=== PATIENT | male | born 1940 | race Caucasian/White ===

== ENCOUNTER → 2018-05-30 | Outpatient (CLI) | payer MEDICARE, OTHER ==
[~2018-05-30] MED LIST: CATHETER FLUSH 10 ML SYR IV PRN
[2018-05-30 08:08] VITALS: BP 190/88
--- NOTE | 2018-05-30 14:06 | STRESS TEST ---
DATE OF SERVICE: 05/30/2018 REFERRING PHYSICIAN: Dr. Jourdan Mcdonald. In summary, the patient was injected with 10.98 mCi of technetium-99 Myoview and the resting images were obtained. Then, the patient received a peak stress dose of 30.4 mCi of technetium-99 Myoview. Throughout the test, patient was supervised by Dr. Mcdonald, the resting and stress images were reviewed and compared in the short axis, horizontal long axis, and vertical long axis views. Review of the images showed diaphragmatic attenuation affecting the quality of the images. There is questionable ischemia involving the mid to apical inferior wall and inferolateral wall. SSS is 1, SDS 1, TID value 1.03. On the gated images, the left ventricle appeared to be normal size with normal contractility. Calculated ejection fraction of 62%. CONCLUSION: 1. Diaphragmatic attenuation affecting the quality of the images with questionable ischemia involving the mid to apical inferior wall and inferolateral wall. 2. Normal left ventricular size with normal contractility. Calculated ejection fraction of 62%. Job ID: [id number] DocumentID: [id number] Dictated Date: 05/30/2018 13:19:23 Fuel Handler Date: 05/30/2018 14:05:55 Dictated By: LOR MARTÍNEZ MD
== END ==
LOC: CARD 06:40
PROVIDERS: ATTEND Internal Medicine
DX: I48.91 Unspecified atrial fibrillation (principal)
CPT/HCPCS: 78452; 93017

== ENCOUNTER 2021-10-09 11:01 | Inpatient (IN) | payer MEDICARE, OTHER ==
[~2021-10-09] VITALS: Ht 178 cm; Wt 100.8 kg
[2021-10-09] MEDS ORDERED: ACETAMINOPHEN 500 MG TAB (TYLENOL) ONE (11:16)
[2021-10-09] MEDS ORDERED: RT-ALBUTEROL/IPRATROPIUM 3 ML (DUONEB) VIAL ONE (11:17)
[2021-10-09 11:26] VITALS: BP 144/82
[2021-10-09] MEDS ORDERED: RT-ALBUTEROL/IPRATROPIUM 3 ML (DUONEB) VIAL INH ONE (11:30)
[2021-10-09 11:52] LABS: BASOPHILS % (AUTO) 0 % (0-10); EOSINOPHILS % (AUTO) 0 % (0-10); HEMATOCRIT 44 % (40-54); HEMOGLOBIN 15.8 g/dL (13.3-17.7); LYMPHOCYTES # (AUTO) 1.3 10^3/uL (1.0-4.0); LYMPHOCYTES % (AUTO) 7 % (12-44); MEAN CORPUSCULAR HEMOGLOBIN 30 pg (25-34); MEAN CORPUSCULAR HGB CONC 36 g/dL (32-36); MEAN CORPUSCULAR VOLUME 82 fL (80-99); MEAN PLATELET VOLUME 12.3 fL (9.0-12.2); MONOCYTES # (AUTO) 0.4 10^3/uL (0.0-1.0); MONOCYTES % (AUTO) 2 % (0-12); NEUTROPHILS # (AUTO) 15.7 10^3/uL (1.8-7.8); NEUTROPHILS % (AUTO) 89 % (42-75); PLATELET COUNT 190 10^3/uL (130-400); WHITE BLOOD COUNT 17.6 10^3/uL (4.3-11.0)
[2021-10-09] MEDS ORDERED: ACETAMINOPHEN 500 MG TAB (TYLENOL) PO ONE (12:00)
[2021-10-09] MEDS ORDERED: ONDANSETRON 4 MG/2 ML (SDV) Z0FRAN IVP ONE (12:00)
--- NOTE | 2021-10-09 12:05 | Diagnostic Imaging Report ---
INDICATION: COVID-19 positive. TIME OF EXAM: 11:51 a.m. No prior studies are available for comparison. FINDINGS: The heart is enlarged. There are bilateral interstitial and airspace pulmonary infiltrates consistent with pneumonia. This is most consolidated in the right upper lobe. Central vascularity is somewhat prominent as well. There is no effusion or pneumothorax. IMPRESSION: Cardiomegaly and bilateral infiltrates most suggestive of pneumonia. Dictated by: Dictated on workstation # [id number]
[2021-10-09 12:07] LABS: ALBUMIN 3.4 GM/DL (3.2-4.5); POTASSIUM 3.7 MMOL/L (3.6-5.0)
[2021-10-09 12:08] LABS: CALCIUM 9.2 MG/DL (8.5-10.1)
[2021-10-09 12:10] LABS: TOTAL PROTEIN 7.3 GM/DL (6.4-8.2)
[2021-10-09 12:11] LABS: BILIRUBIN,TOTAL 1.9 MG/DL (0.1-1.0)
[2021-10-09 12:13] LABS: CREATININE SERUM 1.1 MG/DL (0.60-1.30); FIBRIN DEGRADATION PRODUCTS 1.04 UG/ML (0.00-0.49); INR 4.5 (0.8-1.4); PROTHROMBIN TIME PATIENT 43.6 SEC (12.2-14.7)
[2021-10-09 12:18] LABS: BAND NEUTROPHILS 0 %; BASOPHILS % (MANUAL) 0 %; EOSINOPHILS % (MANUAL) 0 %; LYMPHOCYTES % (MANUAL) 6 %; MONOCYTES % (MANUAL) 1 %; NEUTROPHILS % (MANUAL) 93 %; RBC MORPH NORMAL
[2021-10-09] MEDS ORDERED: NS IV 1000 ML 1,000 ML IV SCH (13:15)
--- NOTE | 2021-10-09 13:21 | ED General ---
General Chief Complaint: COVID19 Suspect/Confirmed Stated Complaint: COVID + Nursing Triage Note: PT TO RM 7 VIA [facility]. UPON ARRIVAL PT IN RESPIRATORY DISTRESS W CPAP IN PLACE, EMS ADMINISTERED 125MG SOLUMEDROL AND DUONEB TX, INITIATED 20G L HAND SL. PT TESTED COVID + 1 WK AGO LAST SATURDAY. PT DENIES PAIN AT THIS TIME, REPORTS EPISODE OF VOMITING THIS AM. A&OX4. Source of Information: Patient, EMS Exam Limitations: No Limitations History of Present Illness Date Seen by Provider: Oct 09, 2021 Time Seen by Provider: 11:04 Initial Comments This 81-year-old gentleman presents to the emergency room with COVID-19 on day #8 with a positive test on October 02. He is in respiratory distress and arrives via EMS with oxygen saturations in the 70s on CPAP. He received a DuoNeb in route as well as Solu-Medrol 125 mg. He was explicitly asked about CODE STATUS upon arrival and is adamant that he does not want CPR or intubation. He reports vomiting this morning. He denies any pain. Allergies and Home Medications Allergies Coded Allergies: No Known Drug Allergies (Unverified , 05/01/12) Patient Home Medication List Home Medication List Reviewed: Yes Review of Systems Review of Systems Constitutional: see HPI, fever EENTM: no symptoms reported Respiratory: see HPI Cardiovascular: no symptoms reported Gastrointestinal: see HPI, vomiting Genitourinary: no symptoms reported Musculoskeletal: no symptoms reported Skin: no symptoms reported Psychiatric/Neurological: No Symptoms Reported Hematologic/Lymphatic: No Symptoms Reported Immunological/Allergic: no symptoms reported Past Ezuxffq-Wvazpp-Bydijt Hx Patient Social History Tobacco Use?: No Smoking Status: Former Smoker Use of E-Cig and/or Vaping dev: No Substance use?: No Alcohol Use?: No Immunizations Up To Date Influenza Vaccine Up-to-Date: No; Not Current First/Initial COVID19 Vaccinat: NONE Second COVID19 Vaccination Laron: NONE Third COVID19 Vaccination Date: NONE COVID19 Vaccine [employer] Offbearer: NONE Past Medical History Surgeries: Yes Abdominal (colonoscopy, transverse colectomy) Respiratory: Yes Sleep Apnea Cardiac: Yes Atrial Fibrillation Neurological: No Reproductive Disorders: No Genitourinary: No Gastrointestinal: No Musculoskeletal: No Endocrine: No HEENT: No Cancer: Yes Colon Psychosocial: No Integumentary: No Physical Exam-Suspected Sepsis Physical Exam Vital Signs Vital Signs - First Documented 10/09/21 10/09/21 11:26 17:00 O2 Flow Rate 100.00 FiO2 100 Capillary Refill : Less Than 3 Seconds Blood Pressure Mean: 94 Height, Weight, BMI Height: '" Weight: lbs. oz. 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 Norm as Tested Skin: normal color, warm/dry Focused Exam Lactate Level 10/09/21 12:30: Lactic Acid Level 3.04*H 10/09/21 15:30: Lactic Acid Level 2.52*H 10/09/21 17:33: Lactic Acid Level 2.87*H Lactic Acid Level Laboratory Tests Test 10/09/21 17:33 Lactic Acid Level 2.87 MMOL/L (0.50-2.00) *H Progress/Results/Core Measures Suspected Sepsis SIRS Temperature: Pulse: 98 Respiratory Rate: 40 Laboratory Tests 10/09/21 11:35: White Blood Count 17.6H Blood Pressure 144 /82 Mean: 94 10/09/21 12:30: Lactic Acid Level 3.04*H 10/09/21 15:30: Lactic Acid Level 2.52*H 10/09/21 17:33: Lactic Acid Level 2.87*H Laboratory Tests 10/09/21 11:35: Creatinine 1.10, INR Comment 4.5H, Platelet Count 190, Total Bilirubin 1.9H Results/Orders Lab Results Laboratory Tests Test 10/09/21 11:35 10/09/21 12:30 10/09/21 14:10 10/09/21 15:30 Range/Units White Blood Count 17.6 H 4.3-11.0 10^3/uL Red Blood Count 5.34 4.30-5.52 10^6/uL Hemoglobin 15.8 13.3-17.7 g/dL Hematocrit 44 40-54 % Mean Corpuscular Volume 82 80-99 fL Mean Corpuscular Hemoglobin 30 25-34 pg Mean Corpuscular Hemoglobin Concent 36 32-36 g/dL Red Cell Distribution Width 12.9 10.0-14.5 % Platelet Count 190 130-400 10^3/uL Mean Platelet Volume 12.3 H 9.0-12.2 fL Immature Granulocyte % (Auto) 1 % Neutrophils (%) (Auto) 89 H 42-75 % Lymphocytes (%) (Auto) 7 L 12-44 % Monocytes (%) (Auto) 2 0-12 % Eosinophils (%) (Auto) 0 0-10 % Basophils (%) (Auto) 0 0-10 % Neutrophils # (Auto) 15.7 H 1.8-7.8 10^3/uL Lymphocytes # (Auto) 1.3 1.0-4.0 10^3/uL Monocytes # (Auto) 0.4 0.0-1.0 10^3/uL Eosinophils # (Auto) 0.0 0.0-0.3 10^3/uL Basophils # (Auto) 0.0 0.0-0.1 10^3/uL Immature Granulocyte # (Auto) 0.2 H 0.0-0.1 10^3/uL Neutrophils % (Manual) 93 % Lymphocytes % (Manual) 6 % Monocytes % (Manual) 1 % Eosinophils % (Manual) 0 % Basophils % (Manual) 0 % Band Neutrophils 0 % Blood Morphology Comment NORMAL Prothrombin Time 43.6 H 12.2-14.7 SEC INR Comment 4.5 H 0.8-1.4 Activated Partial Thromboplast Time 43 H 24-35 SEC D-Dimer 1.04 H 0.00-0.49 UG/ML Sodium Level 128 L 135-145 MMOL/L Potassium Level 3.7 3.6-5.0 MMOL/L Chloride Level 95 L 98-107 MMOL/L Carbon Dioxide Level 19 L 21-32 MMOL/L Anion Gap 14 5-14 MMOL/L Blood Urea Nitrogen 27 H 7-18 MG/DL Creatinine 1.10 0.60-1.30 MG/DL Estimat Glomerular Filtration Rate 68 BUN/Creatinine Ratio 25 Glucose Level 117 H 70-105 MG/DL Calcium Level 9.2 8.5-10.1 MG/DL Corrected Calcium 9.7 8.5-10.1 MG/DL Total Bilirubin 1.9 H 0.1-1.0 MG/DL Aspartate Amino Transf (AST/SGOT) 47 H 5-34 U/L Alanine Aminotransferase (ALT/SGPT) 19 0-55 U/L Alkaline Phosphatase 74 40-136 U/L C-Reactive Protein High Sensitivity 4.72 H 0.00-0.50 MG/DL Total Protein 7.3 6.4-8.2 GM/DL Albumin 3.4 3.2-4.5 GM/DL Procalcitonin 0.19 H <0.10 NG/ML Lactic Acid Level 3.04 *H 2.52 *H 0.50-2.00 MMOL/L Urine Color ORANGE Urine Clarity CLEAR Urine pH 6.0 5-9 Urine Specific [place] 1.020 1.016-1.022 Urine Protein 1+ H NEGATIVE Urine Glucose (UA) NEGATIVE NEGATIVE Urine Ketones NEGATIVE NEGATIVE Urine Nitrite NEGATIVE NEGATIVE Urine Bilirubin NEGATIVE NEGATIVE Urine Urobilinogen 0.2 < = 1.0 MG/DL Urine Leukocyte Esterase NEGATIVE NEGATIVE Urine RBC (Auto) TRACE-I H NEGATIVE Urine RBC 0-2 /HPF Urine WBC 5-10 H /HPF Urine Squamous Epithelial Cells NONE /HPF Urine Renal Epithelial Cells NONE /HPF Urine Crystals NONE /LPF Urine Bacteria NEGATIVE /HPF Urine Casts NONE /LPF Urine Mucus NEGATIVE /LPF Urine Culture Indicated NO Test 10/09/21 17:33 Range/Units Lactic Acid Level 2.87 *H 0.50-2.00 MMOL/L My Orders Orders - TIMI ERICKSON MD Cbc With Automated Diff (10/09/21 11:16) Comprehensive Metabolic Panel (10/09/21 11:16) Blood Culture (10/09/21 11:16) Sputum Culture (10/09/21 11:16) Urinalysis (10/09/21 11:16) Urine Culture (10/09/21 11:16) Protime With Inr (10/09/21 11:16) Partial Thromboplastin Time (10/09/21 11:16) Chest 1 View, Ap/Pa Only (10/09/21 11:16) Ed Iv/Invasive Line Start (10/09/21 11:16) Ed Iv/Invasive Line Start (10/09/21 11:16) Vital Signs Adult Sepsis Patie Q15M (10/09/21 11:16) O2 (10/09/21 11:16) Remove Rings In Anticipation O (10/09/21 11:16) Lactic Acid Analyzer (10/09/21 11:16) Albuterol/Ipra Inhalation Soln (Duoneb I (10/09/21 11:30) Svn Small Volume Nebulizer (10/09/21 11:16) Fibrin Degradation Products (10/09/21 11:16) Procalcitonin (Pct) (10/09/21 11:16) Hs C Reactive Protein (10/09/21 11:16) Acetaminophen Tablet (Tylenol Tablet) (10/09/21 11:16) Albuterol/Ipra Inhalation Soln (Duoneb I (10/09/21 11:17) Ondansetron Injection (Zofran Injectio (10/09/21 12:00) Acetaminophen Tablet (Tylenol Tablet) (10/09/21 12:00) Manual Differential (10/09/21 11:35) Ns Iv 1000 Ml (Sodium Chloride 0.9%) (10/09/21 13:15) Cefepime Injection (Maxipime Injection) (10/09/21 13:30) Code/Resuscitation (10/09/21 13:21) Covid-19 External Lab Results (10/09/21 13:40) Medications Given in ED Current Medications Medications Dose Ordered Sig/Hina Route Start Time Stop Time Status Last Admin Dose Admin Acetaminophen 1,000 mg ONCE ONCE PO 10/09/21 12:00 10/09/21 12:01 DC 10/09/21 11:18 1,000 MG Albuterol/ Ipratropium 3 ml STK-MED ONCE .ROUTE 10/09/21 11:17 10/09/21 11:20 DC 10/09/21 11:29 3 ML Ondansetron HCl 8 mg ONCE ONCE IVP 10/09/21 12:00 10/09/21 12:01 DC 10/09/21 11:18 8 MG Vital Signs/I&O 10/09/21 10/09/21 10/09/21 10/09/21 11:04 11:04 11:18 11:26 Temp 38.6 38.6 Pulse 102 98 Resp 40 B/P (MAP) 144/69 (94) Pulse Ox 90 90 96 O2 Delivery NIV Bilevel NIV Bilevel O2 Flow Rate 100.00 10/09/21 10/09/21 10/09/21 10/09/21 14:10 14:14 14:40 14:41 Temp 36.8 36.8 37.0 Pulse 78 80 Resp 30 22 B/P (MAP) 135/74 125/72 Pulse Ox 98 100 100 O2 Delivery NIV Bilevel NIV Bilevel NIV Bilevel O2 Flow Rate 100.00 10/09/21 10/09/21 10/09/21 10/09/21 16:00 17:00 19:00 20:01 Temp 36.3 36.3 36.5 Pulse 77 77 67 75 Resp 23 24 B/P (MAP) 121/69 119/78 Pulse Ox 97 97 100 O2 Delivery NIV Bilevel NIV Bilevel O2 Flow Rate 100.00 FiO2 100 10/09/21 21:02 Pulse 63 Resp 20 Pulse Ox 98 O2 Flow Rate 70.00 Capillary Refill : Less Than 3 Seconds Blood Pressure Mean: 94 Progress Note : Progress Note Patient was placed on BiPAP. He requested a DNR status. DuoNeb treatment was administered. Solu-Medrol was given by EMS. Cefepime was given for empiric antibiotic therapy. He was admitted to Dr. Johnson on the hospitalist service. No anticoagulation was given as he was supratherapeutic on his INR measurement. Diagnostic Imaging Diagonstic Imaging: Xray Plain Films/CT/US/NM/MRI: chest Comments NAME: MARIE CARPIO [facility] REC#: [id number] PT STATUS: ADM IN : 1940 PHYSICIAN: TIMI ERICKSON MD ADMIT DATE: 10/09/21/[facility] Signed Date of Exam:10/09/21 CHEST 1 VIEW, AP/PA ONLY INDICATION: COVID-19 positive. TIME OF EXAM: 11:51 a.m. No prior studies are available for comparison. FINDINGS: The heart is enlarged. There are bilateral interstitial and airspace pulmonary infiltrates consistent with pneumonia. This is most consolidated in the right upper lobe. Central vascularity is somewhat prominent as well. There is no effusion or pneumothorax. IMPRESSION: Cardiomegaly and bilateral infiltrates most suggestive of pneumonia. Dictated by: Dictated on workstation # [id number] Dict: 10/09/21 1159 Trans: 10/09/21 1600 [id number] Interpreted by: DIEGO KELLER MD Electronically signed by: DIEGO KELLER MD 10/09/21 1600 Departure Communication (Admissions) Time/Spoke to Admitting Phy: 13:15 Elizabeth Impression Primary Impression: Respiratory failure Qualified Codes: J96.91 - Respiratory failure, unspecified with hypoxia Additional Impressions: Pneumonia due to COVID-19 virus Supratherapeutic INR Disposition: ADMITTED INPATIENT Condition: Improved Admissions Decision to Admit Reason: Admit from ER (General) Decision to Admit/Date: Oct 09, 2021 Time/Decision to Admit Time: 11:10 Departure-Patient Inst. Referrals: DARIAN DIAMOND DO (PCP/Family) Primary Care Physician TIMI ERICKSON MD Oct 09, 2021 13:21
[2021-10-09] MEDS ORDERED: CEFEPIME INJECTION 2,000 MG in NS (IVPB) 50 ML IV ONE (13:30)
[2021-10-09 14:44] LABS: BILIRUBIN,URINE NEGATIVE (NEGATIVE); CLARITY,URINE CLEAR; COLOR,URINE ORANGE; GLUCOSE, URINE (UA) NEGATIVE (NEGATIVE); KETONES,URINE NEGATIVE (NEGATIVE); LEUKOCYTE ESTERASE ,URINE NEGATIVE (NEGATIVE); NITRITE,URINE NEGATIVE (NEGATIVE); PROTEIN,URINE 1+ (NEGATIVE)
[2021-10-09 14:52] LABS: BACTERIA,URINE NEGATIVE /HPF; RBC,URINE 0-2 /HPF
[2021-10-09] MEDS ORDERED: ACETAMINOPHEN 500 MG TAB (TYLENOL) PO PRN ×2 (15:00→15:45)
[2021-10-09] MEDS: LACTATED RINGERS 1,000 ML IV SCH (15:06)
--- NOTE | 2021-10-09 15:37 | History & Physical-Hospitalist ---
History of Present Illness HPI/Chief Complaint Jacinto Radford is a 81 year old male with PMH HTN, presumed AFib, anticoagulated on Coumadin, who presented with shortness of breath. He was diagnosed with COVID one week ago. He has had nausea and vomiting. He denies fevers and chills. He denies chest pain. He has had a cough. He denies abdominal pain and diarrhea. He has not been vaccinated against COVID. He has been on steroids and antibiotics at home. Source: patient Exam Limitations: no limitations Date Seen 10/09/21 Time Seen by a Provider: 13:45 Attending Physician Janak Grove MD PCP Jourdan Mcdonald DO Referring Physician Date of Admission Oct 09, 2021 at 13:21 Home Medications & Allergies Home Medications Reviewed patient Home Medication Reconciliation performed by pharmacy medication reconciliations plasma center technician and/or nursing. Patients Allergies have been reviewed. Allergies Allergies Coded Allergies No Known Drug Allergies (Unverified05/01/12) Past Baymext-Bayfjp-Qwubuh Hx Patient Social History Tobacco Use?: No Smoking Status: Former Smoker Use of E-Cig and/or Vaping dev: No Substance use?: No Alcohol Use?: No Pt feels they are or have been: No Immunizations Up To Date First/Initial COVID19 Vaccinat: NONE Second COVID19 Vaccination Laron: NONE Current Status Advance Directives: No Communicates: Verbally Primary Language: Ukrainian Preferred Spoken Language: Ukrainian Is interpretation needed?: No Sensory deficits: Hearing impairment Past Medical History Hypertension Family Medical History No Pertinent Family Hx Review of Systems Constitutional: no symptoms reported EENTM: no symptoms reported Respiratory: cough, short of breath Cardiovascular: no symptoms reported Gastrointestinal: nausea, vomiting Genitourinary: no symptoms reported Musculoskeletal: no symptoms reported Skin: no symptoms reported Psychiatric/Neurological: No Symptoms Reported Physical Exam Physical Exam Vital Signs Vital Signs - First Documented 10/09/21 11:26 O2 Flow Rate 100.00 Capillary Refill : Less Than 3 Seconds Height, Weight, BMI Height: '" Weight: lbs. oz. kg; 31.62 BMI Method: General Appearance: No Apparent Distress, WD/WN, Other (wearing BiPAP) Neck: Normal Inspection, Supple Respiratory: Lungs Clear, Normal Breath Sounds, No Respiratory Distress, Other (wearing BiPAP) Cardiovascular: Regular Rate, Rhythm, No Edema, No Murmur Gastrointestinal: Normal Bowel Sounds, Non Tender, Soft Extremity: Normal Inspection, Non Tender, No Pedal Edema Neurologic/Psychiatric: Alert, Oriented x3, No Motor/Sensory Deficits, Normal Mood/Affect Skin: Normal Color, Warm/Dry Results Results/Procedures Labs Laboratory Tests 10/09/21 11:35 Patient resulted labs reviewed. Imaging: Reviewed Imaging Report Assessment/Plan Admission Diagnosis Acute respiratory failure due to COVID-19 Admission Status: Inpatient Order (span 2 midnights) Reason for Inpatient Admission: Respiratory failure Assessment and Plan Acute respiratory failure due to COVID-19 Possible secondary bacterial pneumonia Lactic acidosis COVID+, unvaccinated Chest xray consistent with COVID pneumonia Procal mildly elevated Taking Azithromycin outpatient Transitioned to Cefepime IV fluids Decadron Discussed Actemra, risks/benefits/EUA use, patient agrees BiPAP as needed DNR/DNI Supratherapeutic INR Hold warfarin Repeat INR tomorrow HTN Continue Lisinopril and Amlodipine Obesity Clinicaly significant, no acute management needs DVT prophylaxis: supratherapeutic INR Diagnosis/Problems Diagnosis/Problems (1) Acute respiratory failure due to COVID-19 Status: Acute (2) Lactic acidosis Status: Acute (3) PNA (pneumonia) Status: Acute (4) HTN (hypertension) Status: Chronic (5) Supratherapeutic INR Status: Acute (6) Obesity Status: Chronic JANAK GROVE MD Oct 09, 2021 15:37
[2021-10-09] MEDS ORDERED: ANTACID SUSP 30 ML UDC (MYLANTA) PO PRN (15:45)
[2021-10-09] MEDS ORDERED: MELATONIN 3 MG TABLET PO PRN (15:45)
[2021-10-09] MEDS ORDERED: guaiFENesin/DM (ROBITUSSIN DM) 10 ML UDC PO PRN (15:45)
[2021-10-09] MEDS ORDERED: ONDANSETRON 4 MG (ZOFRAN) ORAL DISSOLVE TAB PO PRN (15:45)
[2021-10-09] MEDS ORDERED: ONDANSETRON 4 MG/2 ML (SDV) Z0FRAN IV PRN (15:45)
[2021-10-09] MEDS ORDERED: polyethylene glycoL POWDER 17 GM (MIRALAX) PACK PO PRN (15:45)
[2021-10-09] MEDS ORDERED: ACETAMINOPHEN 325 MG TABLET PO PRN (16:00)
[2021-10-09] MEDS ORDERED: ONDANSETRON 4 MG/2 ML (SDV) Z0FRAN IVP PRN (16:00)
[2021-10-09 17:00] VITALS: BP 121/69
[2021-10-09] MEDS ORDERED: RT-ALBUTEROL HFA 8.5 GM INHALER IH PRN (17:15)
[2021-10-09 21:02] VITALS: BP 119/70
[2021-10-09] MEDS: RT-ALBUTEROL HFA 8.5 GM INHALER IH SCH (21:11)
[2021-10-10] MEDS: RT-ALBUTEROL HFA 8.5 GM INHALER IH SCH ×4 (02:17→21:14)
[2021-10-10 02:18] VITALS: BP 119/66
[2021-10-10] MEDS: CEFEPIME 2,000 MG/NS 50 ML IVPB IV SCH ×4 (02:43→14:26)
[2021-10-10] MEDS: LACTATED RINGERS 1,000 ML IV SCH ×3 (02:43→14:26)
[2021-10-10 05:09] LABS: EOSINOPHILS % (AUTO) 0 % (0-10); HEMOGLOBIN 13.6 g/dL (13.3-17.7); MEAN CORPUSCULAR VOLUME 82 fL (80-99); MONOCYTES # (AUTO) 0.2 10^3/uL (0.0-1.0); MONOCYTES % (AUTO) 2 % (0-12)
[2021-10-10 05:11] LABS: BASOPHILS % (AUTO) 0 % (0-10); HEMATOCRIT 38 % (40-54); LYMPHOCYTES # (AUTO) 0.3 10^3/uL (1.0-4.0); LYMPHOCYTES % (AUTO) 4 % (12-44); MEAN CORPUSCULAR HEMOGLOBIN 30 pg (25-34); MEAN CORPUSCULAR HGB CONC 36 g/dL (32-36); MEAN PLATELET VOLUME 12.5 fL (9.0-12.2); NEUTROPHILS # (AUTO) 8.4 10^3/uL (1.8-7.8); NEUTROPHILS % (AUTO) 94 % (42-75); PLATELET COUNT 133 10^3/uL (130-400)
[2021-10-10 05:41] LABS: CALCIUM 8.7 MG/DL (8.5-10.1); CREATININE SERUM 0.97 MG/DL (0.60-1.30); MAGNESIUM 2.1 MG/DL (1.6-2.4); POTASSIUM 3.5 MMOL/L (3.6-5.0)
[2021-10-10 05:45] LABS: PROTHROMBIN TIME PATIENT 50.8 SEC (12.2-14.7)
[2021-10-10] MEDS: MAGNESIUM 1 GM/100 ML IVPB 100 ML IV SCH ×2 (05:45→05:48)
[2021-10-10 05:46] LABS: INR 5.6 (0.8-1.4)
[2021-10-10] MEDS: KCL 20 MEQ TAB (K-DUR) PO SCH (05:48)
[2021-10-10] MEDS: POTASSIUM CL 10MEQ/50ML IVPB 50 ML IV SCH ×4 (05:48→08:52)
[2021-10-10] MEDS ORDERED: KCL 20 MEQ TAB (K-DUR) PO SCH (06:00)
[2021-10-10 08:07] VITALS: BP 119/73
[2021-10-10] MEDS ORDERED: TOCILIZUMAB INJECTION (NON-FOR 800 MG in NS (IVPB) 60 ML IV NR (08:30)
[2021-10-10] MEDS: PANTOPRAZOLE 40 MG (PROTONIX) TAB PO SCH (08:39)
[2021-10-10] MEDS: amLODIPine 10 MG (NORVASC) TAB PO SCH (08:39)
[2021-10-10] MEDS: lisINopril 20 MG (PRINIVIL) TABLET PO SCH (08:40)
[2021-10-10] MEDS: ACYCLOVIR 400 MG TABLET (ZOVIRAX) PO SCH ×2 (08:41→22:47)
[2021-10-10] MEDS ORDERED: CHOL200014 PO (13:36)
[2021-10-10] MEDS ORDERED: AMLO-250 PO (13:36)
[2021-10-10] MEDS ORDERED: LISI20TA26 PO (13:36)
[2021-10-10] MEDS ORDERED: PRD20T PO (13:36)
[2021-10-10] MEDS ORDERED: AZIT250T12 PO (13:36)
[2021-10-10] MEDS ORDERED: FAMO20TA5 PO (13:36)
[2021-10-10] MEDS ORDERED: CYAN100015 SL (13:36)
[2021-10-10] MEDS ORDERED: WARF-48 PO (13:36)
[2021-10-10] MEDS ORDERED: ATEN100T PO (13:36)
[2021-10-10] MEDS ORDERED: ZINC50TA58 PO (13:36)
[2021-10-10] MEDS ORDERED: HYDR25TA4 PO (13:36)
[2021-10-10 15:32] VITALS: BP 121/64
--- NOTE | 2021-10-10 16:56 | Progress Note - Hospitalist ---
Subjective HPI/CC On Admission Date Seen by Provider: Oct 10, 2021 Time Seen by Provider: 10:20 Jacinto Radford is a 81 year old male with PMH HTN, presumed AFib, anticoagulated on Coumadin, who presented with shortness of breath. He was diagnosed with COVID one week ago. He has had nausea and vomiting. He denies fevers and chills. He denies chest pain. He has had a cough. He denies abdominal pain and diarrhea. He has not been vaccinated against COVID. He has been on steroids and antibiotics at home. Subjective/Events-last exam He is still on BiPAP. He says he is feeling better. He still has a cough. Focused Exam Lactate Level 10/09/21 12:30: Lactic Acid Level 3.04*H 10/09/21 15:30: Lactic Acid Level 2.52*H 10/09/21 17:33: Lactic Acid Level 2.87*H Objective Exam Vital Signs Vital Signs Date Time Temp Pulse Resp B/P (MAP) Pulse Ox O2 Delivery O2 Flow Rate FiO2 10/10/21 16:00 36.5 82 27 119/72 NIV Bilevel 50.00 10/10/21 15:32 93 10/10/21 08:18 30 Capillary Refill : Less Than 3 Seconds General Appearance: No Apparent Distress, Obese, Other (wearing BiPAP) Respiratory: Lungs Clear, No Respiratory Distress, Other (wearing BiPAP) Cardiovascular: Regular Rate, Rhythm, No Edema, No Murmur Gastrointestinal: Normal Bowel Sounds, Non Tender, Soft Extremity: Normal Inspection, Non Tender, No Pedal Edema Neurologic/Psychiatric: Alert, No Motor/Sensory Deficits, Normal Mood/Affect Skin: Normal Color, Warm/Dry Results/Procedures Lab Laboratory Tests 10/10/21 04:30 Patient resulted labs reviewed. Imaging: Reviewed Imaging Report Assessment/Plan Assessment and Plan Assess & Plan/Chief Complaint Acute respiratory failure due to COVID-19 Possible secondary bacterial pneumonia Cefepime Decadron s/p Actemra BiPAP as needed DNR/DNI Supratherapeutic INR Remains elevated Hold warfarin Repeat INR tomorrow HTN Continue Lisinopril and Amlodipine Obesity Clinicaly significant, no acute management needs DVT prophylaxis: supratherapeutic INR Diagnosis/Problems Diagnosis/Problems (1) Acute respiratory failure due to COVID-19 Status: Acute (2) Lactic acidosis Status: Acute (3) PNA (pneumonia) Status: Acute (4) HTN (hypertension) Status: Chronic (5) Supratherapeutic INR Status: Acute (6) Obesity Status: Chronic JANAK GROVE MD Oct 10, 2021 16:56
[2021-10-11] MEDS: CEFEPIME 2,000 MG/NS 50 ML IVPB IV SCH ×4 (02:23→12:59)
[2021-10-11 03:00] VITALS: BP 116/65
[2021-10-11] MEDS: RT-ALBUTEROL HFA 8.5 GM INHALER IH SCH ×4 (03:00→21:24)
[2021-10-11 06:01] LABS: EOSINOPHILS % (AUTO) 0 % (0-10)
[2021-10-11 06:03] LABS: BASOPHILS % (AUTO) 0 % (0-10); HEMATOCRIT 39 % (40-54); HEMOGLOBIN 13.7 g/dL (13.3-17.7); LYMPHOCYTES # (AUTO) 0.3 10^3/uL (1.0-4.0); LYMPHOCYTES % (AUTO) 2 % (12-44); MEAN CORPUSCULAR HEMOGLOBIN 29 pg (25-34); MEAN CORPUSCULAR HGB CONC 35 g/dL (32-36); MEAN CORPUSCULAR VOLUME 83 fL (80-99); MEAN PLATELET VOLUME 12.3 fL (9.0-12.2); MONOCYTES # (AUTO) 0.1 10^3/uL (0.0-1.0); MONOCYTES % (AUTO) 1 % (0-12); NEUTROPHILS # (AUTO) 10.8 10^3/uL (1.8-7.8); NEUTROPHILS % (AUTO) 95 % (42-75); PLATELET COUNT 143 10^3/uL (130-400); WHITE BLOOD COUNT 11.4 10^3/uL (4.3-11.0)
[2021-10-11 06:10] LABS: POTASSIUM 4.1 MMOL/L (3.6-5.0)
[2021-10-11 06:11] LABS: INR 4.4 (0.8-1.4); PROTHROMBIN TIME PATIENT 42.6 SEC (12.2-14.7)
[2021-10-11 06:12] LABS: CALCIUM 8.7 MG/DL (8.5-10.1)
[2021-10-11 06:16] LABS: CREATININE SERUM 0.81 MG/DL (0.60-1.30)
[2021-10-11 06:18] LABS: MAGNESIUM 2.3 MG/DL (1.6-2.4)
[2021-10-11] MEDS: POTASSIUM CL 10MEQ/50ML IVPB 50 ML IV SCH ×2 (06:30→06:31)
[2021-10-11] MEDS: KCL 20 MEQ TAB (K-DUR) PO SCH (06:31)
[2021-10-11] MEDS: MAGNESIUM 1 GM/100 ML IVPB 100 ML IV SCH ×2 (06:31)
[2021-10-11 07:08] VITALS: BP 121/73
[2021-10-11] MEDS: amLODIPine 10 MG (NORVASC) TAB PO SCH (08:51)
[2021-10-11] MEDS: LACTATED RINGERS 1,000 ML IV SCH ×2 (08:51→18:33)
[2021-10-11] MEDS: PANTOPRAZOLE 40 MG (PROTONIX) TAB PO SCH (08:51)
[2021-10-11] MEDS: ACYCLOVIR 400 MG TABLET (ZOVIRAX) PO SCH ×2 (08:52→21:29)
[2021-10-11] MEDS: lisINopril 20 MG (PRINIVIL) TABLET PO SCH (08:52)
[2021-10-11 13:57] VITALS: BP 109/76
--- NOTE | 2021-10-11 15:28 | Progress Note - Hospitalist ---
Subjective HPI/CC On Admission Date Seen by Provider: Oct 11, 2021 Time Seen by Provider: 10:05 Jacinto Radford is a 81 year old male with PMH HTN, presumed AFib, anticoagulated on Coumadin, who presented with shortness of breath. He was diagnosed with COVID one week ago. He has had nausea and vomiting. He denies fevers and chills. He denies chest pain. He has had a cough. He denies abdominal pain and diarrhea. He has not been vaccinated against COVID. He has been on steroids and antibiotics at home. Subjective/Events-last exam He is feeling better. He is wearing BiPAP. He was able to eat this morning. Focused Exam Lactate Level 10/09/21 12:30: Lactic Acid Level 3.04*H 10/09/21 15:30: Lactic Acid Level 2.52*H 10/09/21 17:33: Lactic Acid Level 2.87*H Objective Exam Vital Signs Vital Signs Date Time Temp Pulse Resp B/P (MAP) Pulse Ox O2 Delivery O2 Flow Rate FiO2 10/11/21 13:57 87 19 91 80.00 10/11/21 12:17 129/60 NIV Bilevel 10/11/21 09:00 90 10/11/21 04:00 37.2 Capillary Refill : Less Than 3 Seconds General Appearance: No Apparent Distress, Obese Respiratory: Lungs Clear, Normal Breath Sounds, No Respiratory Distress Cardiovascular: Regular Rate, Rhythm, No Murmur Gastrointestinal: Normal Bowel Sounds, Soft Extremity: Normal Inspection, No Pedal Edema Neurologic/Psychiatric: Alert, No Motor/Sensory Deficits, Normal Mood/Affect Skin: Normal Color, Warm/Dry Results/Procedures Lab Laboratory Tests 10/11/21 05:40 Patient resulted labs reviewed. Imaging: Reviewed Imaging Report Assessment/Plan Assessment and Plan Assess & Plan/Chief Complaint Acute respiratory failure due to COVID-19 Possible secondary bacterial pneumonia Cefepime Decadron s/p Actemra BiPAP as needed DNR/DNI Supratherapeutic INR Remains elevated Hold warfarin Repeat INR tomorrow HTN Continue Lisinopril and Amlodipine Obesity Clinicaly significant, no acute management needs DVT prophylaxis: supratherapeutic INR Critical Care Critically Ill Patient Diagnosis/Problems Diagnosis/Problems (1) Acute respiratory failure due to COVID-19 Status: Acute (2) Lactic acidosis Status: Acute (3) PNA (pneumonia) Status: Acute (4) HTN (hypertension) Status: Chronic (5) Supratherapeutic INR Status: Acute (6) Obesity Status: Chronic JANAK GROVE MD Oct 11, 2021 15:28
[2021-10-11 21:24] VITALS: BP 146/81
[2021-10-12] MEDS: LACTATED RINGERS 1,000 ML IV SCH ×3 (03:00→22:25)
[2021-10-12] MEDS: CEFEPIME 2,000 MG/NS 50 ML IVPB IV SCH ×4 (03:00→13:19)
[2021-10-12 03:21] VITALS: BP 125/75
[2021-10-12] MEDS: RT-ALBUTEROL HFA 8.5 GM INHALER IH SCH ×4 (03:21→22:18)
[2021-10-12 05:32] LABS: BASOPHILS % (AUTO) 0 % (0-10); EOSINOPHILS % (AUTO) 0 % (0-10); HEMATOCRIT 37 % (40-54); HEMOGLOBIN 13.1 g/dL (13.3-17.7); LYMPHOCYTES # (AUTO) 0.3 10^3/uL (1.0-4.0); LYMPHOCYTES % (AUTO) 3 % (12-44); MEAN CORPUSCULAR HEMOGLOBIN 29 pg (25-34); MEAN CORPUSCULAR HGB CONC 35 g/dL (32-36); MEAN CORPUSCULAR VOLUME 84 fL (80-99); MEAN PLATELET VOLUME 11.7 fL (9.0-12.2); MONOCYTES # (AUTO) 0.1 10^3/uL (0.0-1.0); MONOCYTES % (AUTO) 1 % (0-12); NEUTROPHILS # (AUTO) 9.6 10^3/uL (1.8-7.8); NEUTROPHILS % (AUTO) 95 % (42-75); PLATELET COUNT 122 10^3/uL (130-400); WHITE BLOOD COUNT 10.2 10^3/uL (4.3-11.0)
[2021-10-12 06:09] LABS: POTASSIUM 4.3 MMOL/L (3.6-5.0)
[2021-10-12 06:10] LABS: CALCIUM 8.3 MG/DL (8.5-10.1)
[2021-10-12 06:14] LABS: CREATININE SERUM 0.73 MG/DL (0.60-1.30)
[2021-10-12 06:17] LABS: MAGNESIUM 2.1 MG/DL (1.6-2.4)
[2021-10-12 06:31] LABS: INR 6.1 (0.8-1.4); PROTHROMBIN TIME PATIENT 54.3 SEC (12.2-14.7)
[2021-10-12] MEDS: POTASSIUM CL 10MEQ/50ML IVPB 50 ML IV SCH ×2 (06:42)
[2021-10-12] MEDS: KCL 20 MEQ TAB (K-DUR) PO SCH (06:43)
[2021-10-12] MEDS: MAGNESIUM 1 GM/100 ML IVPB 100 ML IV SCH ×2 (06:43)
[2021-10-12] MEDS: amLODIPine 10 MG (NORVASC) TAB PO SCH (09:05)
[2021-10-12] MEDS: ACYCLOVIR 400 MG TABLET (ZOVIRAX) PO SCH ×2 (09:05→22:25)
[2021-10-12] MEDS: PANTOPRAZOLE 40 MG (PROTONIX) TAB PO SCH (09:05)
[2021-10-12] MEDS: lisINopril 20 MG (PRINIVIL) TABLET PO SCH (09:05)
[2021-10-12 10:20] VITALS: BP 126/70
--- NOTE | 2021-10-12 12:27 | Progress Note - Hospitalist ---
Subjective HPI/CC On Admission Date Seen by Provider: Oct 12, 2021 Time Seen by Provider: 10:35 Jacinto Radford is a 81 year old male with PMH HTN, presumed AFib, anticoagulated on Coumadin, who presented with shortness of breath. He was diagnosed with COVID one week ago. He has had nausea and vomiting. He denies fevers and chills. He denies chest pain. He has had a cough. He denies abdominal pain and diarrhea. He has not been vaccinated against COVID. He has been on steroids and antibiotics at home. Subjective/Events-last exam He is feeling about the same. He is still wearing BiPAP. He was able to eat alva kfast but then went back to the BiPAP. Focused Exam Lactate Level 10/09/21 12:30: Lactic Acid Level 3.04*H 10/09/21 15:30: Lactic Acid Level 2.52*H 10/09/21 17:33: Lactic Acid Level 2.87*H Objective Exam Vital Signs Vital Signs Date Time Temp Pulse Resp B/P (MAP) Pulse Ox O2 Delivery O2 Flow Rate FiO2 10/12/21 12:16 35.8 84 20 128/70 97 NIV Bilevel 90.00 10/12/21 09:00 80 Capillary Refill : Less Than 3 Seconds General Appearance: No Apparent Distress, WD/WN Respiratory: Lungs Clear, No Respiratory Distress, Other (wearing BiPAP) Cardiovascular: Regular Rate, Rhythm, No Edema, No Murmur Gastrointestinal: Normal Bowel Sounds, Non Tender, Soft Extremity: Normal Inspection, Non Tender, No Pedal Edema Neurologic/Psychiatric: Alert, Normal Mood/Affect Skin: Normal Color, Warm/Dry Results/Procedures Lab Laboratory Tests 10/12/21 05:20 Patient resulted labs reviewed. Imaging: Reviewed Imaging Report Assessment/Plan Assessment and Plan Assess & Plan/Chief Complaint Acute respiratory failure due to COVID-19 Possible secondary bacterial pneumonia Cefepime Decadron s/p Actemra BiPAP as needed DNR/DNI Supratherapeutic INR Remains elevated Hold warfarin Repeat INR tomorrow Check LFTs HTN Continue Lisinopril and Amlodipine Obesity Clinicaly significant, no acute management needs DVT prophylaxis: supratherapeutic INR Critical Care Critically Ill Patient Diagnosis/Problems Diagnosis/Problems (1) Acute respiratory failure due to COVID-19 Status: Acute (2) Lactic acidosis Status: Acute (3) PNA (pneumonia) Status: Acute (4) HTN (hypertension) Status: Chronic (5) Supratherapeutic INR Status: Acute (6) Obesity Status: Chronic JANAK GROVE MD Oct 12, 2021 12:27
[2021-10-12] MEDS ORDERED: VITAMIN K 1 MG/ML ORAL SOLN 1 ML SYRINGE PO NR (12:30)
[2021-10-12 12:44] LABS: ALBUMIN 2.3 GM/DL (3.2-4.5)
[2021-10-12 12:47] LABS: TOTAL PROTEIN 5.5 GM/DL (6.4-8.2)
[2021-10-12 15:56] VITALS: BP 135/73
[2021-10-12 22:18] VITALS: BP 144/91
[2021-10-13] MEDS: RT-ALBUTEROL HFA 8.5 GM INHALER IH SCH ×4 (02:54→20:27)
[2021-10-13 02:55] VITALS: BP 140/103
[2021-10-13] MEDS: CEFEPIME 2,000 MG/NS 50 ML IVPB IV SCH ×4 (02:58→14:05)
[2021-10-13 05:53] LABS: BASOPHILS % (AUTO) 0 % (0-10); EOSINOPHILS % (AUTO) 0 % (0-10); INR 3.3 (0.8-1.4); PROTHROMBIN TIME PATIENT 33.7 SEC (12.2-14.7)
[2021-10-13 05:54] LABS: POTASSIUM 4.2 MMOL/L (3.6-5.0)
[2021-10-13 05:55] LABS: CALCIUM 8.4 MG/DL (8.5-10.1)
[2021-10-13 05:56] LABS: HEMATOCRIT 38 % (40-54); HEMOGLOBIN 13.3 g/dL (13.3-17.7); LYMPHOCYTES # (AUTO) 0.4 10^3/uL (1.0-4.0); LYMPHOCYTES % (AUTO) 4 % (12-44); MEAN CORPUSCULAR HEMOGLOBIN 29 pg (25-34); MEAN CORPUSCULAR HGB CONC 35 g/dL (32-36); MEAN CORPUSCULAR VOLUME 84 fL (80-99); MEAN PLATELET VOLUME 11.4 fL (9.0-12.2); MONOCYTES # (AUTO) 0.1 10^3/uL (0.0-1.0); MONOCYTES % (AUTO) 1 % (0-12); NEUTROPHILS # (AUTO) 8.3 10^3/uL (1.8-7.8); NEUTROPHILS % (AUTO) 93 % (42-75); PLATELET COUNT 112 10^3/uL (130-400); WHITE BLOOD COUNT 8.9 10^3/uL (4.3-11.0)
[2021-10-13 05:59] LABS: CREATININE SERUM 0.72 MG/DL (0.60-1.30)
[2021-10-13 06:02] LABS: MAGNESIUM 2.1 MG/DL (1.6-2.4)
[2021-10-13] MEDS: KCL 20 MEQ TAB (K-DUR) PO SCH (06:13)
[2021-10-13] MEDS: POTASSIUM CL 10MEQ/50ML IVPB 50 ML IV SCH ×2 (06:13)
[2021-10-13] MEDS: MAGNESIUM 1 GM/100 ML IVPB 100 ML IV SCH ×2 (06:13)
[2021-10-13] MEDS: LACTATED RINGERS 1,000 ML IV SCH ×2 (09:29→20:33)
[2021-10-13] MEDS: lisINopril 20 MG (PRINIVIL) TABLET PO SCH (09:29)
[2021-10-13] MEDS: ACYCLOVIR 400 MG TABLET (ZOVIRAX) PO SCH ×2 (09:29→20:33)
[2021-10-13] MEDS: PANTOPRAZOLE 40 MG (PROTONIX) TAB PO SCH (09:29)
[2021-10-13] MEDS: amLODIPine 10 MG (NORVASC) TAB PO SCH (09:29)
[2021-10-13] MEDS ORDERED: ATENOLOL 50 MG (TENORMIN) TAB PO ONE (09:45)
[2021-10-13 11:06] VITALS: BP 142/91
--- NOTE | 2021-10-13 15:28 | Progress Note - Hospitalist ---
Subjective HPI/CC On Admission Date Seen by Provider: Oct 13, 2021 Time Seen by Provider: 09:40 Jacinto Radford is a 81 year old male with PMH HTN, presumed AFib, anticoagulated on Coumadin, who presented with shortness of breath. He was diagnosed with COVID one week ago. He has had nausea and vomiting. He denies fevers and chills. He denies chest pain. He has had a cough. He denies abdominal pain and diarrhea. He has not been vaccinated against COVID. He has been on steroids and antibiotics at home. Subjective/Events-last exam He remains on BiPAP. He is feeling better. He gets short of breath when the BiPA P is off. He has been eating and drinking. Objective Exam Vital Signs Vital Signs Date Time Temp Pulse Resp B/P (MAP) Pulse Ox O2 Delivery O2 Flow Rate FiO2 10/13/21 12:21 120 10/13/21 12:00 35.7 18 116/75 98 NIV Bilevel 80.00 10/13/21 09:00 80 Capillary Refill : Less Than 3 Seconds General Appearance: No Apparent Distress, Obese Respiratory: Lungs Clear, No Respiratory Distress, Other (wearing BiPAP) Cardiovascular: No Murmur, Irregularly Irregular, Tachycardia Gastrointestinal: Normal Bowel Sounds, Soft Extremity: Normal Inspection, Non Tender, No Pedal Edema Neurologic/Psychiatric: Alert, Normal Mood/Affect Skin: Normal Color, Warm/Dry Results/Procedures Lab Laboratory Tests 10/13/21 05:25 Patient resulted labs reviewed. Imaging: Reviewed Imaging Report Assessment/Plan Assessment and Plan Assess & Plan/Chief Complaint Acute respiratory failure due to COVID-19 Possible secondary bacterial pneumonia Cefepime Decadron s/p Actemra BiPAP as needed DNR/DNI AFib with RVR Resume Atenolol Resume warfarin Supratherapeutic INR Improved Resume warfarin HTN Continue Lisinopril and Amlodipine Obesity Clinicaly significant, no acute management needs DVT prophylaxis: supratherapeutic INR Critical Care Critically Ill Patient Diagnosis/Problems Diagnosis/Problems (1) Acute respiratory failure due to COVID-19 Status: Acute (2) Lactic acidosis Status: Acute (3) PNA (pneumonia) Status: Acute (4) HTN (hypertension) Status: Chronic (5) Supratherapeutic INR Status: Acute (6) Obesity Status: Chronic (7) Atrial fibrillation with RVR Status: Acute JANAK GROVE MD Oct 13, 2021 15:28
[2021-10-13] MEDS ORDERED: warFARin 3 MG (COUMADIN) TAB PO SCH (18:00)
[2021-10-13 20:27] VITALS: BP 145/88
[2021-10-13] MEDS: warFARin 3 MG (COUMADIN) TAB PO SCH (20:33)
[2021-10-13] MEDS: ATENOLOL 50 MG (TENORMIN) TAB PO SCH (20:33)
[2021-10-14] MEDS: CEFEPIME 2,000 MG/NS 50 ML IVPB IV SCH ×2 (01:07)
[2021-10-14 02:16] VITALS: BP 145/88
[2021-10-14] MEDS: RT-ALBUTEROL HFA 8.5 GM INHALER IH SCH ×5 (02:16→22:56)
[2021-10-14] MEDS: MAGNESIUM 1 GM/100 ML IVPB 100 ML IV SCH ×2 (03:09)
[2021-10-14] MEDS: KCL 20 MEQ TAB (K-DUR) PO SCH (03:09)
[2021-10-14] MEDS: POTASSIUM CL 10MEQ/50ML IVPB 50 ML IV SCH ×2 (03:09)
[2021-10-14] MEDS: LACTATED RINGERS 1,000 ML IV SCH ×3 (04:00→20:35)
[2021-10-14 06:50] LABS: BASOPHILS % (AUTO) 0 % (0-10); EOSINOPHILS % (AUTO) 0 % (0-10); HEMATOCRIT 40 % (40-54); LYMPHOCYTES # (AUTO) 0.5 10^3/uL (1.0-4.0); LYMPHOCYTES % (AUTO) 5 % (12-44); MEAN CORPUSCULAR HEMOGLOBIN 29 pg (25-34); MEAN CORPUSCULAR HGB CONC 35 g/dL (32-36); MEAN CORPUSCULAR VOLUME 84 fL (80-99); MEAN PLATELET VOLUME 11.7 fL (9.0-12.2); MONOCYTES # (AUTO) 0.2 10^3/uL (0.0-1.0); MONOCYTES % (AUTO) 1 % (0-12); NEUTROPHILS % (AUTO) 93 % (42-75); WHITE BLOOD COUNT 11.8 10^3/uL (4.3-11.0)
[2021-10-14 06:56] LABS: PLATELET COUNT 110 10^3/uL (130-400)
[2021-10-14 07:00] LABS: POTASSIUM 4.4 MMOL/L (3.6-5.0)
[2021-10-14 07:01] LABS: CALCIUM 8.3 MG/DL (8.5-10.1)
[2021-10-14 07:05] LABS: INR 3.3 (0.8-1.4)
[2021-10-14 07:06] LABS: CREATININE SERUM 0.68 MG/DL (0.60-1.30)
[2021-10-14 07:08] LABS: MAGNESIUM 2.2 MG/DL (1.6-2.4)
[2021-10-14] MEDS: ATENOLOL 50 MG (TENORMIN) TAB PO SCH ×2 (08:53→20:35)
[2021-10-14] MEDS: ACYCLOVIR 400 MG TABLET (ZOVIRAX) PO SCH ×2 (08:53→20:35)
[2021-10-14] MEDS: PANTOPRAZOLE 40 MG (PROTONIX) TAB PO SCH (08:53)
[2021-10-14] MEDS: lisINopril 20 MG (PRINIVIL) TABLET PO SCH (08:53)
[2021-10-14] MEDS: amLODIPine 10 MG (NORVASC) TAB PO SCH (08:53)
[2021-10-14 14:52] VITALS: BP 125/76
--- NOTE | 2021-10-14 16:05 | Progress Note - Hospitalist ---
Subjective HPI/CC On Admission Date Seen by Provider: Oct 14, 2021 Time Seen by Provider: 10:20 Jacinto Radford is a 81 year old male with PMH HTN, presumed AFib, anticoagulated on Coumadin, who presented with shortness of breath. He was diagnosed with COVID one week ago. He has had nausea and vomiting. He denies fevers and chills. He denies chest pain. He has had a cough. He denies abdominal pain and diarrhea. He has not been vaccinated against COVID. He has been on steroids and antibiotics at home. Subjective/Events-last exam He is doing about the same. He has no complaints. We discussed his high oxygen r equirements and BiPAP dependence. Objective Exam Vital Signs Vital Signs Date Time Temp Pulse Resp B/P (MAP) Pulse Ox O2 Delivery O2 Flow Rate FiO2 10/14/21 14:52 77 24 92 70.00 10/14/21 11:40 35.5 147/92 NIV Bilevel 10/14/21 09:20 75 Capillary Refill : Less Than 3 Seconds General Appearance: No Apparent Distress, Obese Respiratory: Lungs Clear, No Respiratory Distress, Other (wearing BiPAP) Cardiovascular: Regular Rate, Rhythm, No Murmur Gastrointestinal: Normal Bowel Sounds, Soft Extremity: Normal Inspection, No Pedal Edema Neurologic/Psychiatric: Alert, Normal Mood/Affect Skin: Normal Color, Warm/Dry Results/Procedures Lab Laboratory Tests 10/14/21 05:50 Patient resulted labs reviewed. Imaging: Reviewed Imaging Report Assessment/Plan Assessment and Plan Assess & Plan/Chief Complaint Acute respiratory failure due to COVID-19 Possible secondary bacterial pneumonia Poor prognosis s/p Cefepime Decadron s/p Actemra BiPAP dependent DNR/DNI AFib Continue Atenolol Continue warfarin Supratherapeutic INR Stable Continue warfarin HTN Continue Lisinopril and Amlodipine Obesity Clinicaly significant, no acute management needs DVT prophylaxis: supratherapeutic INR AFib with RVR, resolved Critical Care Critically Ill Patient Diagnosis/Problems Diagnosis/Problems (1) Acute respiratory failure due to COVID-19 Status: Acute (2) Lactic acidosis Status: Resolved Resolution Date/Time: 10/14/21 @ 16:05 (3) PNA (pneumonia) Status: Resolved Resolution Date/Time: 10/14/21 @ 16:05 (4) HTN (hypertension) Status: Chronic (5) Supratherapeutic INR Status: Acute (6) Obesity Status: Chronic (7) Atrial fibrillation with RVR Status: Acute JANAK GROVE MD Oct 14, 2021 16:05
[2021-10-14 19:30] VITALS: BP 140/84
[2021-10-14] MEDS: warFARin 3 MG (COUMADIN) TAB PO SCH (20:35)
[2021-10-14 22:56] VITALS: BP 157/71
[2021-10-14 23:59] VITALS: BP 147/92
[2021-10-15 02:57] VITALS: BP 129/83
[2021-10-15 04:34] LABS: BASOPHILS % (AUTO) 0 % (0-10); EOSINOPHILS % (AUTO) 0 % (0-10)
[2021-10-15 04:37] LABS: HEMATOCRIT 40 % (40-54); HEMOGLOBIN 13.9 g/dL (13.3-17.7); LYMPHOCYTES # (AUTO) 0.7 10^3/uL (1.0-4.0); LYMPHOCYTES % (AUTO) 4 % (12-44); MEAN CORPUSCULAR HEMOGLOBIN 30 pg (25-34); MEAN CORPUSCULAR HGB CONC 35 g/dL (32-36); MEAN CORPUSCULAR VOLUME 84 fL (80-99); MEAN PLATELET VOLUME 10.7 fL (9.0-12.2); MONOCYTES # (AUTO) 0.3 10^3/uL (0.0-1.0); MONOCYTES % (AUTO) 2 % (0-12); NEUTROPHILS # (AUTO) 14.2 10^3/uL (1.8-7.8); NEUTROPHILS % (AUTO) 92 % (42-75); PLATELET COUNT 98 10^3/uL (130-400); WHITE BLOOD COUNT 15.4 10^3/uL (4.3-11.0)
[2021-10-15 05:00] LABS: POTASSIUM 4.6 MMOL/L (3.6-5.0)
[2021-10-15 05:01] LABS: CALCIUM 8.2 MG/DL (8.5-10.1)
[2021-10-15 05:05] LABS: CREATININE SERUM 0.71 MG/DL (0.60-1.30)
[2021-10-15 05:07] LABS: MAGNESIUM 2.2 MG/DL (1.6-2.4)
[2021-10-15 05:13] LABS: BAND NEUTROPHILS 2 %; LYMPHOCYTES % (MANUAL) 2 %; MONOCYTES % (MANUAL) 3 %; NEUTROPHILS % (MANUAL) 93 %; RBC MORPH NORMAL
[2021-10-15] MEDS: POTASSIUM CL 10MEQ/50ML IVPB 50 ML IV SCH ×2 (05:21→05:22)
[2021-10-15 05:22] LABS: PROTHROMBIN TIME PATIENT 51.2 SEC (12.2-14.7)
[2021-10-15 05:23] LABS: INR 5.6 (0.8-1.4)
[2021-10-15] MEDS: KCL 20 MEQ TAB (K-DUR) PO SCH (05:23)
[2021-10-15] MEDS: MAGNESIUM 1 GM/100 ML IVPB 100 ML IV SCH ×2 (05:23)
[2021-10-15] MEDS: LACTATED RINGERS 1,000 ML IV SCH ×2 (05:56→15:50)
[2021-10-15 08:18] VITALS: BP 143/80
[2021-10-15] MEDS: RT-ALBUTEROL HFA 8.5 GM INHALER IH SCH ×3 (08:18→21:38)
[2021-10-15] MEDS: lisINopril 20 MG (PRINIVIL) TABLET PO SCH (10:27)
[2021-10-15] MEDS: amLODIPine 10 MG (NORVASC) TAB PO SCH (10:27)
[2021-10-15] MEDS: ACYCLOVIR 400 MG TABLET (ZOVIRAX) PO SCH ×2 (10:27→21:18)
[2021-10-15] MEDS: PANTOPRAZOLE 40 MG (PROTONIX) TAB PO SCH (10:27)
[2021-10-15] MEDS: ATENOLOL 50 MG (TENORMIN) TAB PO SCH ×2 (10:28→21:18)
[2021-10-15 16:26] VITALS: BP 125/82
[2021-10-15 18:19] VITALS: BP 125/82
--- NOTE | 2021-10-15 19:05 | Progress Note - Hospitalist ---
Subjective HPI/CC On Admission Date Seen by Provider: Oct 15, 2021 Time Seen by Provider: 10:10 Jacinto Radford is a 81 year old male with PMH HTN, presumed AFib, anticoagulated on Coumadin, who presented with shortness of breath. He was diagnosed with COVID one week ago. He has had nausea and vomiting. He denies fevers and chills. He denies chest pain. He has had a cough. He denies abdominal pain and diarrhea. He has not been vaccinated against COVID. He has been on steroids and antibiotics at home. Subjective/Events-last exam He is feeling about the same. He has no complaints. He has not eaten yet today. He denies pain. Objective Exam Vital Signs Vital Signs Date Time Temp Pulse Resp B/P (MAP) Pulse Ox O2 Delivery O2 Flow Rate FiO2 10/15/21 18:19 73 22 92 80.00 10/15/21 16:00 35.6 125/82 NIV Bilevel 10/15/21 09:00 80 Capillary Refill : Less Than 3 Seconds General Appearance: No Apparent Distress, Obese Respiratory: Lungs Clear, No Respiratory Distress, Other (wearing BiPAP) Cardiovascular: Regular Rate, Rhythm, No Murmur Gastrointestinal: Normal Bowel Sounds, Soft Extremity: Normal Inspection, Pedal Edema Neurologic/Psychiatric: Alert, Normal Mood/Affect Skin: Normal Color, Warm/Dry Results/Procedures Lab Laboratory Tests 10/15/21 04:25 Patient resulted labs reviewed. Imaging: Reviewed Imaging Report Assessment/Plan Assessment and Plan Assess & Plan/Chief Complaint Acute respiratory failure due to COVID-19 Possible secondary bacterial pneumonia Poor prognosis s/p Cefepime Decadron s/p Actemra BiPAP dependent DNR/DNI AFib Supratherapeutic INR Continue Atenolol INR increased Hold warfarin HTN Continue Lisinopril and Amlodipine Obesity Clinicaly significant, no acute management needs DVT prophylaxis: supratherapeutic INR AFib with RVR, resolved Critical Care Critically Ill Patient Diagnosis/Problems Diagnosis/Problems (1) Acute respiratory failure due to COVID-19 Status: Acute (2) Lactic acidosis Status: Resolved Resolution Date/Time: 10/14/21 @ 16:05 (3) PNA (pneumonia) Status: Resolved Resolution Date/Time: 10/14/21 @ 16:05 (4) HTN (hypertension) Status: Chronic (5) Supratherapeutic INR Status: Acute (6) Obesity Status: Chronic (7) Atrial fibrillation with RVR Status: Acute JANAK GROVE MD Oct 15, 2021 19:05
[2021-10-15 21:36] VITALS: BP 126/86
[2021-10-16] MEDS: LACTATED RINGERS 1,000 ML IV SCH ×3 (02:09→20:45)
[2021-10-16 02:39] VITALS: BP 116/75
[2021-10-16] MEDS: RT-ALBUTEROL HFA 8.5 GM INHALER IH SCH ×4 (02:39→21:11)
[2021-10-16 05:30] LABS: EOSINOPHILS % (AUTO) 0 % (0-10)
[2021-10-16 05:32] LABS: BASOPHILS % (AUTO) 0 % (0-10); HEMATOCRIT 39 % (40-54); HEMOGLOBIN 13.4 g/dL (13.3-17.7); LYMPHOCYTES # (AUTO) 0.7 10^3/uL (1.0-4.0); LYMPHOCYTES % (AUTO) 4 % (12-44); MEAN CORPUSCULAR HEMOGLOBIN 30 pg (25-34); MEAN CORPUSCULAR HGB CONC 34 g/dL (32-36); MEAN CORPUSCULAR VOLUME 86 fL (80-99); MEAN PLATELET VOLUME 11.1 fL (9.0-12.2); MONOCYTES # (AUTO) 0.4 10^3/uL (0.0-1.0); MONOCYTES % (AUTO) 2 % (0-12); NEUTROPHILS # (AUTO) 16.5 10^3/uL (1.8-7.8); NEUTROPHILS % (AUTO) 92 % (42-75); PLATELET COUNT 99 10^3/uL (130-400); WHITE BLOOD COUNT 17.9 10^3/uL (4.3-11.0)
[2021-10-16 05:49] LABS: CALCIUM 8.3 MG/DL (8.5-10.1); CREATININE SERUM 0.73 MG/DL (0.60-1.30); MAGNESIUM 2.1 MG/DL (1.6-2.4); POTASSIUM 4.7 MMOL/L (3.6-5.0)
[2021-10-16] MEDS: POTASSIUM CL 10MEQ/50ML IVPB 50 ML IV SCH ×2 (05:52)
[2021-10-16] MEDS: MAGNESIUM 1 GM/100 ML IVPB 100 ML IV SCH ×2 (05:52)
[2021-10-16] MEDS: KCL 20 MEQ TAB (K-DUR) PO SCH (05:53)
[2021-10-16 06:24] LABS: INR 9.7 (0.8-1.4); PROTHROMBIN TIME PATIENT 78.2 SEC (12.2-14.7)
[2021-10-16 07:22] VITALS: BP 117/67
[2021-10-16] MEDS ORDERED: VITAMIN K 1 MG/ML ORAL SOLN 1 ML SYRINGE PO ONE ×2 (08:00→08:30)
[2021-10-16] MEDS ORDERED: VITAMIN K 1 MG/ML ORAL SOLN 1 ML SYRINGE PO NR (08:30)
[2021-10-16] MEDS: ATENOLOL 50 MG (TENORMIN) TAB PO SCH ×2 (08:35→20:45)
[2021-10-16] MEDS: lisINopril 20 MG (PRINIVIL) TABLET PO SCH (08:35)
[2021-10-16] MEDS: PANTOPRAZOLE 40 MG (PROTONIX) TAB PO SCH (08:35)
[2021-10-16] MEDS: amLODIPine 10 MG (NORVASC) TAB PO SCH (08:35)
[2021-10-16] MEDS: ACYCLOVIR 400 MG TABLET (ZOVIRAX) PO SCH ×2 (08:36→20:45)
[2021-10-16] MEDS ORDERED: FUROSEMIDE 40 MG/4 ML INJ (LASIX) IVP SCH (09:00)
[2021-10-16 10:50] VITALS: BP 144/80
--- NOTE | 2021-10-16 13:59 | Progress Note - Hospitalist ---
Subjective HPI/CC On Admission Date Seen by Provider: Oct 16, 2021 Time Seen by Provider: 10:30 Jacinto Radford is a 81 year old male with PMH HTN, presumed AFib, anticoagulated on Coumadin, who presented with shortness of breath. He was diagnosed with COVID one week ago. He has had nausea and vomiting. He denies fevers and chills. He denies chest pain. He has had a cough. He denies abdominal pain and diarrhea. He has not been vaccinated against COVID. He has been on steroids and antibiotics at home. Subjective/Events-last exam He is still short of breath. He is feeling about the same. He has no complaints. Objective Exam Vital Signs Vital Signs Date Time Temp Pulse Resp B/P (MAP) Pulse Ox O2 Delivery O2 Flow Rate FiO2 10/16/21 13:40 95 NIV Bilevel 80.00 10/16/21 12:19 36.4 65 26 128/72 10/16/21 09:00 100 Capillary Refill : Less Than 3 Seconds General Appearance: No Apparent Distress, Obese Respiratory: Lungs Clear, No Respiratory Distress, Other (wearing BiPAP) Cardiovascular: Regular Rate, Rhythm, No Murmur Gastrointestinal: Normal Bowel Sounds, Soft Extremity: Normal Inspection, Pedal Edema Neurologic/Psychiatric: Alert, Normal Mood/Affect Skin: Normal Color, Warm/Dry Results/Procedures Lab Laboratory Tests 10/16/21 04:54 Patient resulted labs reviewed. Imaging: Reviewed Imaging Report Assessment/Plan Assessment and Plan Assess & Plan/Chief Complaint Acute respiratory failure due to COVID-19 Possible secondary bacterial pneumonia Poor prognosis Fluid overload s/p Cefepime Decadron s/p Actemra BiPAP dependent Begin [facility] AFib Supratherapeutic INR Continue Atenolol INR increased Hold warfarin Vitamin K HTN Continue Lisinopril and Amlodipine Obesity Clinicaly significant, no acute management needs DVT prophylaxis: supratherapeutic INR AFib with RVR, resolved Critical Care Critically Ill Patient Diagnosis/Problems Diagnosis/Problems (1) Acute respiratory failure due to COVID-19 Status: Acute (2) Lactic acidosis Status: Resolved Resolution Date/Time: 10/14/21 @ 16:05 (3) PNA (pneumonia) Status: Resolved Resolution Date/Time: 10/14/21 @ 16:05 (4) HTN (hypertension) Status: Chronic (5) Supratherapeutic INR Status: Acute (6) Obesity Status: Chronic (7) Atrial fibrillation with RVR Status: Acute JANAK GROVE MD Oct 16, 2021 13:59
[2021-10-16 14:38] VITALS: BP 128/72
[2021-10-16 18:20] VITALS: BP 128/73
[2021-10-16 21:11] VITALS: BP 117/79
[2021-10-17 02:45] VITALS: BP 108/65
[2021-10-17] MEDS: RT-ALBUTEROL HFA 8.5 GM INHALER IH SCH ×4 (02:45→21:34)
[2021-10-17 06:04] LABS: EOSINOPHILS % (AUTO) 0 % (0-10); HEMOGLOBIN 13.6 g/dL (13.3-17.7); MEAN CORPUSCULAR VOLUME 86 fL (80-99)
[2021-10-17 06:06] LABS: BASOPHILS # (AUTO) 0.1 10^3/uL (0.0-0.1); BASOPHILS % (AUTO) 0 % (0-10); HEMATOCRIT 39 % (40-54); LYMPHOCYTES % (AUTO) 4 % (12-44); MEAN CORPUSCULAR HEMOGLOBIN 30 pg (25-34); MEAN CORPUSCULAR HGB CONC 35 g/dL (32-36); MEAN PLATELET VOLUME 11.7 fL (9.0-12.2); MONOCYTES # (AUTO) 0.6 10^3/uL (0.0-1.0); MONOCYTES % (AUTO) 2 % (0-12); NEUTROPHILS # (AUTO) 21.4 10^3/uL (1.8-7.8); NEUTROPHILS % (AUTO) 92 % (42-75); PLATELET COUNT 126 10^3/uL (130-400); WHITE BLOOD COUNT 23.3 10^3/uL (4.3-11.0)
[2021-10-17 06:13] LABS: INR 2.2 (0.8-1.4); PROTHROMBIN TIME PATIENT 25.2 SEC (12.2-14.7)
[2021-10-17] MEDS: LACTATED RINGERS 1,000 ML IV SCH (06:19)
[2021-10-17 06:22] LABS: BAND NEUTROPHILS 1 %; LYMPHOCYTES % (MANUAL) 2 %; MONOCYTES % (MANUAL) 2 %; NEUTROPHILS % (MANUAL) 95 %; RBC MORPH NORMAL
[2021-10-17 06:24] LABS: POTASSIUM 4.9 MMOL/L (3.6-5.0)
[2021-10-17 06:25] LABS: CALCIUM 8.4 MG/DL (8.5-10.1)
[2021-10-17 06:29] LABS: CREATININE SERUM 0.74 MG/DL (0.60-1.30)
[2021-10-17 06:32] LABS: MAGNESIUM 2.3 MG/DL (1.6-2.4)
[2021-10-17] MEDS: POTASSIUM CL 10MEQ/50ML IVPB 50 ML IV SCH ×2 (07:34)
[2021-10-17] MEDS: MAGNESIUM 1 GM/100 ML IVPB 100 ML IV SCH ×2 (07:35)
[2021-10-17] MEDS: KCL 20 MEQ TAB (K-DUR) PO SCH (07:35)
[2021-10-17] MEDS: ATENOLOL 50 MG (TENORMIN) TAB PO SCH ×2 (08:36→19:44)
[2021-10-17] MEDS: PANTOPRAZOLE 40 MG (PROTONIX) TAB PO SCH (08:36)
[2021-10-17] MEDS: lisINopril 20 MG (PRINIVIL) TABLET PO SCH (08:36)
[2021-10-17] MEDS: ACYCLOVIR 400 MG TABLET (ZOVIRAX) PO SCH ×2 (08:36→19:44)
[2021-10-17] MEDS: amLODIPine 10 MG (NORVASC) TAB PO SCH (08:36)
[2021-10-17] MEDS: FUROSEMIDE 40 MG/4 ML INJ (LASIX) IVP SCH (08:37)
[2021-10-17 10:07] VITALS: BP 138/79
[2021-10-17 10:09] VITALS: BP 138/79
--- NOTE | 2021-10-17 16:25 | Progress Note - Hospitalist ---
Subjective HPI/CC On Admission Date Seen by Provider: Oct 17, 2021 Time Seen by Provider: 10:50 Jacinto Radford is a 81 year old male with PMH HTN, presumed AFib, anticoagulated on Coumadin, who presented with shortness of breath. He was diagnosed with COVID one week ago. He has had nausea and vomiting. He denies fevers and chills. He denies chest pain. He has had a cough. He denies abdominal pain and diarrhea. He has not been vaccinated against COVID. He has been on steroids and antibiotics at home. Subjective/Events-last exam He is feeling about the same. He is still wearing BiPAP. He is ok with making a referral to [facility]. Objective Exam Vital Signs Vital Signs Date Time Temp Pulse Resp B/P (MAP) Pulse Ox O2 Delivery O2 Flow Rate FiO2 10/17/21 16:00 73 25 118/73 95 Vapotherm 100.00 10/17/21 13:33 36.0 10/17/21 09:00 100 Capillary Refill : Less Than 3 Seconds General Appearance: No Apparent Distress, Obese Respiratory: Lungs Clear, No Respiratory Distress Cardiovascular: Regular Rate, Rhythm, No Murmur Gastrointestinal: Normal Bowel Sounds, Soft Extremity: Normal Inspection, Pedal Edema Neurologic/Psychiatric: Alert, Normal Mood/Affect Skin: Normal Color, Warm/Dry Results/Procedures Lab Laboratory Tests 10/17/21 05:56 Patient resulted labs reviewed. Imaging: Reviewed Imaging Report Assessment/Plan Assessment and Plan Assess & Plan/Chief Complaint Acute respiratory failure due to COVID-19 Possible secondary bacterial pneumonia Poor prognosis Fluid overload s/p Cefepime Decadron s/p Actemra BiPAP/Vapotherm, weaning as able [facility] referral AFib Continue Atenolol INR normalized Resume warfarin, lower dose HTN Continue Lisinopril and Amlodipine Obesity Clinicaly significant, no acute management needs DVT prophylaxis: supratherapeutic INR AFib with RVR, resolved Supratherapeutic INR, resolved Diagnosis/Problems Diagnosis/Problems (1) Acute respiratory failure due to COVID-19 Status: Acute (2) Lactic acidosis Status: Resolved Resolution Date/Time: 10/14/21 @ 16:05 (3) PNA (pneumonia) Status: Resolved Resolution Date/Time: 10/14/21 @ 16:05 (4) HTN (hypertension) Status: Chronic (5) Supratherapeutic INR Status: Resolved Resolution Date/Time: 10/17/21 @ 16:25 (6) Obesity Status: Chronic (7) Atrial fibrillation with RVR Status: Acute JANAK GROVE MD Oct 17, 2021 16:25
[2021-10-17] MEDS: warFARin 1 MG (COUMADIN) TAB PO SCH (18:48)
[2021-10-17 21:34] VITALS: BP 120/59
[2021-10-18 03:18] VITALS: BP 127/72
[2021-10-18] MEDS: RT-ALBUTEROL HFA 8.5 GM INHALER IH SCH ×4 (03:18→21:57)
[2021-10-18 04:41] LABS: BASOPHILS % (AUTO) 0 % (0-10); EOSINOPHILS % (AUTO) 0 % (0-10); HEMATOCRIT 39 % (40-54); HEMOGLOBIN 13.5 g/dL (13.3-17.7); LYMPHOCYTES % (AUTO) 4 % (12-44); MEAN CORPUSCULAR HEMOGLOBIN 30 pg (25-34); MEAN CORPUSCULAR HGB CONC 35 g/dL (32-36); MEAN CORPUSCULAR VOLUME 85 fL (80-99); MEAN PLATELET VOLUME 11.2 fL (9.0-12.2); MONOCYTES # (AUTO) 0.7 10^3/uL (0.0-1.0); MONOCYTES % (AUTO) 3 % (0-12); NEUTROPHILS # (AUTO) 23.2 10^3/uL (1.8-7.8); NEUTROPHILS % (AUTO) 92 % (42-75); PLATELET COUNT 117 10^3/uL (130-400); WHITE BLOOD COUNT 25.3 10^3/uL (4.3-11.0)
[2021-10-18 04:59] LABS: POTASSIUM 4.5 MMOL/L (3.6-5.0)
[2021-10-18 05:00] LABS: CALCIUM 8.3 MG/DL (8.5-10.1); INR 2.1 (0.8-1.4); PROTHROMBIN TIME PATIENT 24.2 SEC (12.2-14.7)
[2021-10-18 05:04] LABS: CREATININE SERUM 0.68 MG/DL (0.60-1.30)
[2021-10-18 05:06] LABS: MAGNESIUM 2.2 MG/DL (1.6-2.4)
[2021-10-18] MEDS: POTASSIUM CL 10MEQ/50ML IVPB 50 ML IV SCH (05:17)
[2021-10-18] MEDS: KCL 20 MEQ TAB (K-DUR) PO SCH (05:18)
[2021-10-18] MEDS: MAGNESIUM 1 GM/100 ML IVPB 100 ML IV SCH (05:18)
[2021-10-18 07:05] VITALS: BP 123/74
[2021-10-18] MEDS: ATENOLOL 50 MG (TENORMIN) TAB PO SCH ×2 (08:38→20:01)
[2021-10-18] MEDS: FUROSEMIDE 40 MG/4 ML INJ (LASIX) IVP SCH (08:39)
[2021-10-18] MEDS: amLODIPine 10 MG (NORVASC) TAB PO SCH (08:39)
[2021-10-18] MEDS: PANTOPRAZOLE 40 MG (PROTONIX) TAB PO SCH (08:40)
[2021-10-18] MEDS: lisINopril 20 MG (PRINIVIL) TABLET PO SCH (08:40)
[2021-10-18] MEDS: ACYCLOVIR 400 MG TABLET (ZOVIRAX) PO SCH ×2 (08:40→20:01)
--- NOTE | 2021-10-18 15:48 | Progress Note - Hospitalist ---
Subjective HPI/CC On Admission Date Seen by Provider: Oct 18, 2021 Time Seen by Provider: 10:20 Jacinto Radford is a 81 year old male with PMH HTN, presumed AFib, anticoagulated on Coumadin, who presented with shortness of breath. He was diagnosed with COVID one week ago. He has had nausea and vomiting. He denies fevers and chills. He denies chest pain. He has had a cough. He denies abdominal pain and diarrhea. He has not been vaccinated against COVID. He has been on steroids and antibiotics at home. Subjective/Events-last exam He is doing about the same. He is still short of breath. He has been able to eat . Objective Exam Vital Signs Vital Signs Date Time Temp Pulse Resp B/P (MAP) Pulse Ox O2 Delivery O2 Flow Rate FiO2 10/18/21 15:35 36.2 85 20 119/54 95 Vapotherm 40.00 100.00 10/18/21 14:58 100 Capillary Refill : Less Than 3 Seconds General Appearance: No Apparent Distress, Obese Respiratory: Lungs Clear, No Respiratory Distress, Decreased Breath Sounds, Other (wearing BiPAP) Cardiovascular: Regular Rate, Rhythm, No Murmur Gastrointestinal: Normal Bowel Sounds, Non Tender, Soft Extremity: Normal Inspection, Non Tender, Pedal Edema Skin: Normal Color, Warm/Dry Results/Procedures Lab Laboratory Tests 10/18/21 04:30 Patient resulted labs reviewed. Imaging: Reviewed Imaging Report Assessment/Plan Assessment and Plan Assess & Plan/Chief Complaint Acute respiratory failure due to COVID-19 Possible secondary bacterial pneumonia Poor prognosis Fluid overload s/p Cefepime Decadron s/p Actemra BiPAP/Vapotherm, weaning as able [facility] referral, awaiting insurance approval AFib Continue Atenolol INR normalized Resume warfarin, lower dose HTN Continue Lisinopril and Amlodipine Obesity Clinicaly significant, no acute management needs DVT prophylaxis: supratherapeutic INR AFib with RVR, resolved Supratherapeutic INR, resolved Critical Care Critically Ill Patient Diagnosis/Problems Diagnosis/Problems (1) Acute respiratory failure due to COVID-19 Status: Acute (2) Lactic acidosis Status: Resolved Resolution Date/Time: 10/14/21 @ 16:05 (3) PNA (pneumonia) Status: Resolved Resolution Date/Time: 10/14/21 @ 16:05 (4) HTN (hypertension) Status: Chronic (5) Supratherapeutic INR Status: Resolved Resolution Date/Time: 10/17/21 @ 16:25 (6) Obesity Status: Chronic (7) Atrial fibrillation with RVR Status: Acute JANAK GROVE MD Oct 18, 2021 15:48
[2021-10-18] MEDS: warFARin 1 MG (COUMADIN) TAB PO SCH (18:46)
[2021-10-18 21:57] VITALS: BP 120/68
[2021-10-19 02:41] VITALS: BP 124/72
[2021-10-19] MEDS: RT-ALBUTEROL HFA 8.5 GM INHALER IH SCH ×4 (02:41→21:27)
[2021-10-19 04:58] LABS: EOSINOPHILS % (AUTO) 0 % (0-10); LYMPHOCYTES % (AUTO) 3 % (12-44); MEAN CORPUSCULAR VOLUME 85 fL (80-99)
[2021-10-19 04:59] LABS: BASOPHILS # (AUTO) 0.1 10^3/uL (0.0-0.1); BASOPHILS % (AUTO) 0 % (0-10); HEMATOCRIT 39 % (40-54); HEMOGLOBIN 13.5 g/dL (13.3-17.7); LYMPHOCYTES # (AUTO) 0.9 10^3/uL (1.0-4.0); MEAN CORPUSCULAR HEMOGLOBIN 30 pg (25-34); MEAN CORPUSCULAR HGB CONC 35 g/dL (32-36); MEAN PLATELET VOLUME 11.4 fL (9.0-12.2); MONOCYTES # (AUTO) 0.6 10^3/uL (0.0-1.0); MONOCYTES % (AUTO) 2 % (0-12); NEUTROPHILS # (AUTO) 24.7 10^3/uL (1.8-7.8); NEUTROPHILS % (AUTO) 93 % (42-75); PLATELET COUNT 94 10^3/uL (130-400); WHITE BLOOD COUNT 26.7 10^3/uL (4.3-11.0)
[2021-10-19 05:29] LABS: POTASSIUM 4.5 MMOL/L (3.6-5.0)
[2021-10-19 05:31] LABS: CALCIUM 8.3 MG/DL (8.5-10.1)
[2021-10-19 05:35] LABS: CREATININE SERUM 0.71 MG/DL (0.60-1.30)
[2021-10-19 05:37] LABS: MAGNESIUM 2.2 MG/DL (1.6-2.4)
[2021-10-19 05:38] LABS: INR 2.3 (0.8-1.4)
[2021-10-19] MEDS: POTASSIUM CL 10MEQ/50ML IVPB 50 ML IV SCH (05:38)
[2021-10-19] MEDS: MAGNESIUM 1 GM/100 ML IVPB 100 ML IV SCH (05:38)
[2021-10-19] MEDS: KCL 20 MEQ TAB (K-DUR) PO SCH (05:39)
[2021-10-19] MEDS: lisINopril 20 MG (PRINIVIL) TABLET PO SCH (08:00)
[2021-10-19] MEDS: ATENOLOL 50 MG (TENORMIN) TAB PO SCH ×3 (08:00→19:39)
[2021-10-19] MEDS: amLODIPine 10 MG (NORVASC) TAB PO SCH (08:00)
[2021-10-19 08:02] VITALS: BP 128/90
[2021-10-19] MEDS: FUROSEMIDE 40 MG/4 ML INJ (LASIX) IVP SCH (08:40)
[2021-10-19 10:38] VITALS: BP 132/69
[2021-10-19] MEDS: PANTOPRAZOLE 40 MG (PROTONIX) TAB PO SCH (11:59)
[2021-10-19] MEDS: ACYCLOVIR 400 MG TABLET (ZOVIRAX) PO SCH ×2 (11:59→19:39)
--- NOTE | 2021-10-19 15:12 | Progress Note - Hospitalist ---
Subjective HPI/CC On Admission Date Seen by Provider: Oct 19, 2021 Time Seen by Provider: 10:35 Jacinto Radford is a 81 year old male with PMH HTN, presumed AFib, anticoagulated on Coumadin, who presented with shortness of breath. He was diagnosed with COVID one week ago. He has had nausea and vomiting. He denies fevers and chills. He denies chest pain. He has had a cough. He denies abdominal pain and diarrhea. He has not been vaccinated against COVID. He has been on steroids and antibiotics at home. Subjective/Events-last exam He is feeling about the same. He is off BiPAP and wearing Vapotherm. He has been able to eat. Objective Exam Vital Signs Vital Signs Date Time Temp Pulse Resp B/P (MAP) Pulse Ox O2 Delivery O2 Flow Rate FiO2 10/19/21 14:23 88 Vapotherm 40.00 100 10/19/21 13:00 72 10/19/21 12:02 30 10/19/21 11:50 36.1 114/81 Capillary Refill : Less Than 3 Seconds General Appearance: No Apparent Distress, Obese Respiratory: Lungs Clear, No Respiratory Distress Cardiovascular: Regular Rate, Rhythm, No Murmur Gastrointestinal: Normal Bowel Sounds, Soft Extremity: Normal Inspection, Pedal Edema Neurologic/Psychiatric: Alert, Normal Mood/Affect Skin: Normal Color, Warm/Dry Results/Procedures Lab Laboratory Tests 10/19/21 04:46 Patient resulted labs reviewed. Imaging: Reviewed Imaging Report Assessment/Plan Assessment and Plan Assess & Plan/Chief Complaint Acute respiratory failure due to COVID-19 Possible secondary bacterial pneumonia Poor prognosis Fluid overload s/p Cefepime Decadron s/p Actemra BiPAP/Vapotherm, weaning as able [facility] referral, awaiting insurance approval AFib Continue Atenolol INR normalized Continue warfarin, lower dose HTN Continue Lisinopril and Amlodipine Obesity Clinicaly significant, no acute management needs DVT prophylaxis: already receiving therapeutic anticoagulation AFib with RVR, resolved Supratherapeutic INR, resolved Critical Care Critically Ill Patient Diagnosis/Problems Diagnosis/Problems (1) Acute respiratory failure due to COVID-19 Status: Acute (2) Lactic acidosis Status: Resolved Resolution Date/Time: 10/14/21 @ 16:05 (3) PNA (pneumonia) Status: Resolved Resolution Date/Time: 10/14/21 @ 16:05 (4) HTN (hypertension) Status: Chronic (5) Supratherapeutic INR Status: Resolved Resolution Date/Time: 10/17/21 @ 16:25 (6) Obesity Status: Chronic (7) Atrial fibrillation with RVR Status: Acute JANAK GROVE MD Oct 19, 2021 15:12
[2021-10-19] MEDS: warFARin 1 MG (COUMADIN) TAB PO SCH (17:48)
[2021-10-19 21:27] VITALS: BP 124/75
[2021-10-20 02:20] VITALS: BP 124/68
[2021-10-20] MEDS: RT-ALBUTEROL HFA 8.5 GM INHALER IH SCH ×3 (02:20→14:11)
[2021-10-20 05:13] LABS: HEMOGLOBIN 13.1 g/dL (13.3-17.7)
[2021-10-20 05:15] LABS: BASOPHILS # (AUTO) 0.1 10^3/uL (0.0-0.1); BASOPHILS % (AUTO) 0 % (0-10); EOSINOPHILS % (AUTO) 0 % (0-10); HEMATOCRIT 38 % (40-54); LYMPHOCYTES # (AUTO) 0.9 10^3/uL (1.0-4.0); LYMPHOCYTES % (AUTO) 3 % (12-44); MEAN CORPUSCULAR HEMOGLOBIN 30 pg (25-34); MEAN CORPUSCULAR HGB CONC 35 g/dL (32-36); MEAN CORPUSCULAR VOLUME 87 fL (80-99); MEAN PLATELET VOLUME 11.7 fL (9.0-12.2); MONOCYTES # (AUTO) 0.6 10^3/uL (0.0-1.0); MONOCYTES % (AUTO) 2 % (0-12); NEUTROPHILS # (AUTO) 24.3 10^3/uL (1.8-7.8); NEUTROPHILS % (AUTO) 93 % (42-75); PLATELET COUNT 85 10^3/uL (130-400); WHITE BLOOD COUNT 26.3 10^3/uL (4.3-11.0)
[2021-10-20 05:27] LABS: INR 2.1 (0.8-1.4); PROTHROMBIN TIME PATIENT 24.2 SEC (12.2-14.7)
[2021-10-20 05:39] LABS: POTASSIUM 4.5 MMOL/L (3.6-5.0)
[2021-10-20 05:40] LABS: CALCIUM 8.3 MG/DL (8.5-10.1)
[2021-10-20 05:45] LABS: CREATININE SERUM 0.76 MG/DL (0.60-1.30)
[2021-10-20 05:47] LABS: MAGNESIUM 2.2 MG/DL (1.6-2.4)
[2021-10-20] MEDS: POTASSIUM CL 10MEQ/50ML IVPB 50 ML IV SCH (05:55)
[2021-10-20] MEDS: MAGNESIUM 1 GM/100 ML IVPB 100 ML IV SCH (05:55)
[2021-10-20] MEDS: KCL 20 MEQ TAB (K-DUR) PO SCH (05:55)
[2021-10-20 07:37] VITALS: BP 116/70
[2021-10-20] MEDS: FUROSEMIDE 40 MG/4 ML INJ (LASIX) IVP SCH (08:37)
[2021-10-20] MEDS: lisINopril 20 MG (PRINIVIL) TABLET PO SCH (08:37)
[2021-10-20] MEDS: PANTOPRAZOLE 40 MG (PROTONIX) TAB PO SCH (08:37)
[2021-10-20] MEDS: ATENOLOL 50 MG (TENORMIN) TAB PO SCH (08:38)
[2021-10-20] MEDS: amLODIPine 10 MG (NORVASC) TAB PO SCH (08:38)
[2021-10-20] MEDS: ACYCLOVIR 400 MG TABLET (ZOVIRAX) PO SCH (08:39)
[2021-10-20 14:50] VITALS: BP 111/59
[2021-10-20] MEDS ORDERED: FURO-124 PO (16:23)
[2021-10-20] MEDS ORDERED: WRF1T PO (16:23)
[2021-10-20] MEDS ORDERED: AMLO-251 PO (16:23)
[2021-10-20 16:30] VITALS: BP 110/80
--- NOTE | 2021-10-20 19:55 | Discharge Summary ---
Discharge Summary Hospital Course Was the Problem List Reviewed?: Yes Problems/Dx: (1) Acute respiratory failure due to COVID-19 Status: Acute (2) Lactic acidosis Status: Resolved (3) PNA (pneumonia) Status: Resolved (4) HTN (hypertension) Status: Chronic (5) Supratherapeutic INR Status: Resolved (6) Obesity Status: Chronic (7) Atrial fibrillation with RVR Status: Acute Hospital Course Date of Admission: Oct 09, 2021 at 13:21 Admission Diagnosis : Acute respiratory failure due to COVID-19 Family Physician/Provider: Darian Mcdonald DO Date of Discharge: 10/20/21 Discharge Diagnosis: Acute respiratory failure due to COVID-19 Hospital Course: Jacinto Radford is a 81 year old male with PMH HTN, AFib on coumadin, obesity, who was admitted with acute respiratory failure due to COVID-19. He was treated with IV steroids and Actemra. He had a significant oxygen requirement and was BiPAP dependent for several days. He was able to be weaned off to Vapotherm. He was given a course of antibiotics for secondary bacterial pneumonia. He had issues with supratherapeutic INR. He was given vitamin K and his coumadin dose was reduced. He was transferred to [facility] for ongoing oxygen weaning and therapy needs. Labs and Pending Lab Test: Laboratory Tests 10/20/21 05:11: White Blood Count 26.3H, Red Blood Count 4.35, Hemoglobin 13.1L, Hematocrit 38L, Mean Corpuscular Volume 87, Mean Corpuscular Hemoglobin 30, Mean Corpuscular Hemoglobin Concent 35, Red Cell Distribution Width 14.7H, Platelet Count 85L, Mean Platelet Volume 11.7, Immature Granulocyte % (Auto) 1, Neutrophils (%) (Auto) 93H, Lymphocytes (%) (Auto) 3L, Monocytes (%) (Auto) 2, Eosinophils (%) (Auto) 0, Basophils (%) (Auto) 0, Neutrophils # (Auto) 24.3H, Lymphocytes # (Auto) 0.9L, Monocytes # (Auto) 0.6, Eosinophils # (Auto) 0.0, Basophils # (Auto) 0.1, Immature Granulocyte # (Auto) 0.3H, Percent Immature Platelet Fraction 8.2H, Prothrombin Time 24.2H, INR Comment 2.1H, Sodium Level 138, Potassium Level 4.5, Chloride Level 105, Carbon Dioxide Level 25, Anion Gap 8, Blood Urea Nitrogen 46H, Creatinine 0.76, Estimat Glomerular Filtration Rate 91, BUN/Creatinine Ratio 61, Glucose Level 138H, Calcium Level 8.3L, Magnesium Level 2.2 Microbiology 10/09/21 Urine Culture - Final, Complete Growth Consistent 10/09/21 Blood Culture - Final, Complete No growth Home Meds Active Lasix (Furosemide) 40 Mg Tablet 40 Mg PO DAILY 7 Days Amlodipine Besylate 10 Mg Tablet 10 Mg PO DAILY 30 Days Warfarin Sodium 1 Mg Tablet 1 Mg PO DAILY@1800 30 Days Reported Lisinopril 20 Mg Tablet 40 Mg PO DAILY TAKES 2 (20MG) TABS Atenolol 100 Mg Tablet 100 Mg PO BID Famotidine 20 Mg Tablet 20 Mg PO BID Assessment/Pt Instructions See instructions Discharge Planning: <30 minutes discharge planning Discharge Instructions Discharge Diet: No Restrictions Activity as Tolerated: Yes Discharge Physical Examination Vital Signs Vital Signs Date Time Temp Pulse Resp B/P (MAP) Pulse Ox O2 Delivery O2 Flow Rate FiO2 10/20/21 16:30 36.3 81 24 110/80 90 Vapotherm 40.00 10/20/21 10:47 100 General Appearance: No Apparent Distress, Obese Respiratory: No Respiratory Distress, Decreased Breath Sounds, Other (wearing Vapotherm) Cardiovascular: Regular Rate, Rhythm, No Murmur Gastrointestinal: Normal Bowel Sounds, Soft Extremity: Normal Inspection, Pedal Edema Skin: Normal Color, Warm/Dry Neurologic/Psychiatric: Alert, Normal Mood/Affect Allergies: Coded Allergies: No Known Drug Allergies (Unverified , 05/01/12) Copy Copies To 1: DARIAN MCDONALD DO Discharge Summary Date of Admission Oct 09, 2021 at 13:21 Date of Discharge Oct 20, 2021 at 17:45 Discharge Date: Oct 20, 2021 Discharge Time: 17:45 Admission Diagnosis Acute respiratory failure due to COVID-19 Discharge Diagnosis Acute respiratory failure due to COVID-19 (1) Acute respiratory failure due to COVID-19 Status: Acute (2) Lactic acidosis Status: Resolved (3) PNA (pneumonia) Status: Resolved (4) HTN (hypertension) Status: Chronic (5) Supratherapeutic INR Status: Resolved (6) Obesity Status: Chronic (7) Atrial fibrillation with RVR Status: Acute JANAK GROVE MD Oct 20, 2021 19:55
== END 2021-10-20 17:45 | DRG 177 ==
LOC: EDUNIT# 11:01 → ER 11:04 → ICU 13:21 → CSD 14:35
PROVIDERS: ADMIT Internal Medicine; ATTEND Internal Medicine
PROC: 5A09557 Assistance with Respiratory Ventilation, Greater than 96 Consecutive Hours, Continuous Positive Airway Pressure (ICD-10-PCS; principal; 2021-10-09)
DX: U07.1 COVID-19 (principal); J12.82 Pneumonia due to coronavirus disease 2019; J96.01 Acute respiratory failure with hypoxia; J15.9 Unspecified bacterial pneumonia; E87.2 Acidosis; Z73.0 Burn-out; Z87.891 Personal history of nicotine dependence; G47.30 Sleep apnea, unspecified; I48.91 Unspecified atrial fibrillation; R79.1 Abnormal coagulation profile; Z79.01 Long term (current) use of anticoagulants; I10 Essential (primary) hypertension; E66.9 Obesity, unspecified; Z68.31 Body mass index [BMI] 31.0-31.9, adult; Z66 Do not resuscitate; E87.70 Fluid overload, unspecified
CPT/HCPCS: 36415; 71045; 80048; 80053; 80076; 81000; 83605; 83735; 84145; 85007; 85025; 85027; 85379; 85610; 85730; 86141; 87040; 87088; 94640; 94660; 96361; 96374; 96375